=== PATIENT | male | born 1980 | race Caucasian/White ===

== ENCOUNTER 2020-09-06 18:09 | Emergency (ER) | payer SELFPAY ==
[~2020-09-06] VITALS: Ht 132.1 cm; Wt 110.8 kg
[2020-09-06 18:15] VITALS: BP 151/89
[2020-09-06] MEDS ORDERED: DEXAMETHASONE 4 MG/ML VIAL PO ONE (19:25)
[2020-09-06 19:46] LABS: BASOPHILS # (AUTO) 0.1 K/uL (0.00-0.22); BASOPHILS % (AUTO) 0.6 % (0.0-2.0); EOSINOPHILS % (AUTO) 0.4 % (0.0-4.0); HEMATOCRIT 47.2 % (36-52); LYMPHOCYTES # (AUTO) 1.8 K/uL (2.0-11.5); LYMPHOCYTES % (AUTO) 17.4 % (20.5-51.1); MEAN CORPUSCULAR HEMOGLOBIN 31 pg (27-31); MEAN CORPUSCULAR HGB CONC 34 g/dL (33-37); MEAN CORPUSCULAR VOLUME 90.2 fL (80-94); MONOCYTES # (AUTO) 0.3 K/uL (0.8-1.0); MONOCYTES % (AUTO) 3.2 % (1.7-9.3); NEUTROPHILS # (AUTO) 7.9 K/uL (1.8-7.7); NEUTROPHILS % (AUTO) 78.4 % (42.2-75.2); PLATELET COUNT (AUTO) 192 K/uL (140-450); RED BLOOD CELL COUNT(AUTO) 5.23 MIL/uL (4.20-6.10); RED CELL DISTRIBUTION WIDTH 13.5 % (11.6-13.7); WHITE BLOOD COUNT (AUTO) 10.1 K/uL (4.8-10.8)
[2020-09-06 20:03] LABS: ALBUMIN 4.4 g/dL (3.4-5.0); ANION GAP 13.6 (8-16); CARBON DIOXIDE 26.6 mmol/L (21-32); POTASSIUM 4.2 mmol/L (3.5-5.1); TOTAL BILIRUBIN 1.1 mg/dL (0.0-1.0)
[2020-09-06 21:50] VITALS: BP 138/88
== END 2020-09-06 22:15 | disposition home or self-care (01) ==
LOC: MED 18:09
DX: J39.2 Other diseases of pharynx (principal)
CPT/HCPCS: 36415; 70491; 80053; 85025; 99285; J1100

== ENCOUNTER 2021-08-19 10:40 | Emergency (ER) | payer SELFPAY ==
[~2021-08-19] VITALS: Ht 185.4 cm; Wt 113.4 kg
[2021-08-19 10:52] VITALS: BP 144/97
[2021-08-19] MEDS ORDERED: OMEP-303 PO (11:51)
[2021-08-19] MEDS ORDERED: BEN10 PO (11:51)
--- NOTE | 2021-08-19 12:09 | NUR ---
Patient discharged with v/s stable. Written and verbal after care instructions given and explained. Patient alert, oriented and verbalized understanding of instructions. Carried with steady gait. All questions addressed prior to discharge. ID band removed. Patient advised to follow up with PMD. Rx of OMEPRAZOLE AND BENTYL given. Patient educated on indication of medication including possible reaction and side effects. Opportunity to ask questions provided and answered.
--- NOTE | 2021-08-19 12:10 | NUR ---
PT SEEN BY REJI DELACRUZ, NO NURSING INTERVENTIONS PROVIDED
== END 2021-08-19 12:09 | disposition home or self-care (01) ==
LOC: MED 10:40
DX: J02.9 Acute pharyngitis, unspecified (principal); R03.0 Elevated blood-pressure reading, without diagnosis of hypertension; Z79.899 Other long term (current) drug therapy
CPT/HCPCS: 99283

== ENCOUNTER 2021-10-31 12:32 | Emergency (ER) | payer SELFPAY ==
[~2021-10-31] VITALS: Ht 195.6 cm; Wt 99.8 kg
[~2021-10-31 12:32] MED LIST: BEN10 PO; OMEP-303 PO
[2021-10-31 12:35] VITALS: BP 158/114
[2021-10-31] MEDS ORDERED: LIDOCAINE MPF 1% 10 MG/ML VIAL INJ ONE (12:45)
[2021-10-31] MEDS ORDERED: AMOX-999 PO (13:50)
== END 2021-10-31 14:04 | disposition home or self-care (01) ==
LOC: MED 12:32
DX: S81.851A Open bite, right lower leg, initial encounter (principal); Z79.899 Other long term (current) drug therapy; W54.0XXA Bitten by dog, initial encounter; Y93.89 Activity, other specified; Y92.89 Other specified places as the place of occurrence of the external cause; Y99.8 Other external cause status
CPT/HCPCS: 90471; 90715; 99283; J2001

== ENCOUNTER 2021-11-02 16:48 | Emergency (ER) | payer SELFPAY ==
[~2021-11-02] VITALS: Ht 195.6 cm; Wt 99.8 kg
[~2021-11-02 16:48] MED LIST changes: +AMOX-999 PO
[2021-11-02 16:58] VITALS: BP 152/95
--- NOTE | 2021-11-02 17:10 | NUR ---
BIB SELF FOR WOUND CHECK S/P DOG BITE AT RIGHT KNEE X 2 DAYS AGO.
--- NOTE | 2021-11-02 17:18 | NUR ---
Patient being evaluated by REJI COYNE at TRIAGE ROOM.
[2021-11-02] MEDS ORDERED: SULF-58 PO (17:23)
[2021-11-02] MEDS ORDERED: BACTO TP (17:23)
[2021-11-02] MEDS ORDERED: BACITRACIN OINT 500 UNITS/GM PKT TP ONE ×2 (17:32→17:35)
[2021-11-02 17:58] VITALS: BP 152/95
--- NOTE | 2021-11-02 17:58 | NUR ---
Patient discharged with v/s stable. Written and verbal after care instructions given and explained. Patient alert, oriented and verbalized understanding of instructions. Ambulatory with steady gait. All questions addressed prior to discharge. ID band removed. Patient advised to follow up with PMD. Rx of bactrobam, bactrim (sent) given. Patient educated on indication of medication including possible reaction and side effects. Opportunity to ask questions provided and answered.
== END 2021-11-02 17:58 | disposition home or self-care (01) ==
LOC: MED 16:48
DX: S81.851D Open bite, right lower leg, subsequent encounter (principal); L08.9 Local infection of the skin and subcutaneous tissue, unspecified; Z79.899 Other long term (current) drug therapy; W54.0XXD Bitten by dog, subsequent encounter
CPT/HCPCS: 99282

== ENCOUNTER 2021-11-04 17:17 | Emergency (ER) | payer SELFPAY ==
[~2021-11-04] VITALS: Ht 195.6 cm; Wt 99.8 kg
[~2021-11-04 17:17] MED LIST changes: +BACTO TP; +SULF-58 PO
[2021-11-04 17:32] VITALS: BP 165/98
--- NOTE | 2021-11-04 17:35 | NUR ---
PT AMB TO BED 5.
--- NOTE | 2021-11-04 18:20 | NUR ---
41/M PRESENTS TO ED FOR WOUND CHECK TO RIGHT KNEE. PATIENT REPORTS GETTING SUTURES PLACED 4 DAYS AGO, DENIES WORSENING PAIN, NO DISCHARGE OR TENDERNESS NOTED TO SITE, PATIENT DENIES RECENT FEVERS OR CHILLS, PATIENT AMBULATORY UPON ARRIVAL TO ED.
--- NOTE | 2021-11-04 18:45 | NUR ---
Patient discharged with v/s stable. Written and verbal after care instructions ABOUT ANIMAL BITE given and explained. Patient verbalized understanding. Ambulatory with steady gait. All questions addressed prior to discharge. Advised to follow up with PMD.
== END 2021-11-04 18:45 | disposition home or self-care (01) ==
LOC: MED 17:17
DX: S81.011D Laceration without foreign body, right knee, subsequent encounter (principal); Z79.899 Other long term (current) drug therapy; W54.0XXD Bitten by dog, subsequent encounter
CPT/HCPCS: 99281

== ENCOUNTER 2021-11-13 09:38 | Emergency (ER) | payer SELFPAY ==
[~2021-11-13] VITALS: Ht 167.6 cm; Wt 113.4 kg
[2021-11-13 09:50] VITALS: BP 145/97
--- NOTE | 2021-11-13 10:39 | NUR ---
41/M PRESENTS TO ED FOR SUTURE REMOVAL, STATES SUTURES PLACED ON LEFT LEG. DENIES PAIN, FEVER OR SIGNS OF INFECTIONS, NO OTHER MEDICAL COMPLAINTS AT THIS TIME.
--- NOTE | 2021-11-13 10:43 | NUR ---
Patient discharged with v/s stable. Written and verbal after care instructions ABOUT SUTURE REMOVAL given and explained. Patient verbalized understanding. Ambulatory with steady gait. All questions addressed prior to discharge. Advised to follow up with PMD.
== END 2021-11-13 10:43 | disposition home or self-care (01) ==
LOC: MED 09:38
DX: S71.151D Open bite, right thigh, subsequent encounter (principal); Z48.02 Encounter for removal of sutures; Z79.899 Other long term (current) drug therapy; Z79.2 Long term (current) use of antibiotics; W54.0XXD Bitten by dog, subsequent encounter
CPT/HCPCS: 99281

== ENCOUNTER 2022-04-30 10:11 | Emergency (ER) | payer SELFPAY ==
[~2022-04-30] VITALS: Ht 198.1 cm; Wt 111.1 kg
[2022-04-30 10:21] VITALS: BP 134/88
--- NOTE | 2022-04-30 10:26 | NUR ---
PT AMB TO BED 4
--- NOTE | 2022-04-30 10:28 | NUR ---
EKG BEING DONE
--- NOTE | 2022-04-30 10:30 | NUR ---
PATIENT PRESENTS TO ED WITH CHEST PAIN . PT STATES CHEST PAIN STARTED 3-4DAYS AGO AND ITS CURRENTLY BURNING, RADAITES TO HIS BACK AND EARS. DENIES N/V/D; SKIN IS PINK/WARM/DRY; AAOX4 WITH EVEN AND STEADY GAIT; LUNGS CLEAR BL; HR EVEN AND REGULAR; PT DENIES ANY FEVER, CP, SOB, OR COUGH AT THIS TIME; PATIENT STATES PAIN OF 8/10 AT THIS TIME; VSS; PATIENT POSITIONED FOR COMFORT; HOB ELEVATED; BEDRAILS UP X2; BED DOWN. ER MD MADE AWARE OF PT STATUS. PMH: NONE NKA
[2022-04-30 11:01] LABS: BASOPHILS % (AUTO) 0.6 % (0.0-2.0); EOSINOPHILS # (AUTO) 0.1 K/uL (0-0.4); EOSINOPHILS % (AUTO) 1.8 % (0.0-4.0); HEMATOCRIT 46.1 % (36-52); HEMOGLOBIN 15.4 g/dL (12.0-18.0); LYMPHOCYTES % (AUTO) 36.1 % (20.5-51.1); MEAN CORPUSCULAR HEMOGLOBIN 30 pg (27-31); MEAN CORPUSCULAR HGB CONC 33 g/dL (33-37); MEAN CORPUSCULAR VOLUME 89.5 fL (80-94); MONOCYTES # (AUTO) 0.3 K/uL (0.8-1.0); MONOCYTES % (AUTO) 4.9 % (1.7-9.3); NEUTROPHILS # (AUTO) 3.1 K/uL (1.8-7.7); NEUTROPHILS % (AUTO) 56.6 % (42.2-75.2); PLATELET COUNT (AUTO) 200 K/uL (140-450); RED BLOOD CELL COUNT(AUTO) 5.15 MIL/uL (4.20-6.10); RED CELL DISTRIBUTION WIDTH 13.1 % (11.6-13.7); WHITE BLOOD COUNT (AUTO) 5.4 K/uL (4.8-10.8)
[2022-04-30 11:11] LABS: ANION GAP 10.1 (8-16); CARBON DIOXIDE 29.2 mmol/L (21-32); POTASSIUM 4.3 mmol/L (3.5-5.1)
[2022-04-30] MEDS ORDERED: NAPR-54 PO (11:51)
[2022-04-30 12:15] VITALS: BP 140/90
--- NOTE | 2022-04-30 12:15 | NUR ---
Patient discharged with v/s stable. Written and verbal after care instructions given and explained. Patient alert, oriented and verbalized understanding of instructions. Ambulatory with steady gait. All questions addressed prior to discharge. ID band removed. Patient advised to follow up with PMD. Rx of NAPROXEN 500 MG TABLET given. Patient educated on indication of medication including possible reaction and side effects. Opportunity to ask questions provided and answered.
== END 2022-04-30 12:15 | disposition home or self-care (01) ==
LOC: MED 10:11
DX: R07.9 Chest pain, unspecified (principal); I10 Essential (primary) hypertension; Z79.2 Long term (current) use of antibiotics; Z79.899 Other long term (current) drug therapy
CPT/HCPCS: 36415; 71045; 80048; 84484; 85025; 93005; 99285

== ENCOUNTER 2023-08-19 11:32 | Emergency (ER) | payer SELFPAY ==
[~2023-08-19] VITALS: Ht 175.3 cm; Wt 108.9 kg
[~2023-08-19 11:32] MED LIST changes: +NAPR-337 PO
[2023-08-19 11:51] VITALS: BP 149/92; PULSE 72; RESP 18; TEMP 97.6; O2SAT 99
[2023-08-19 12:12] VITALS: BP 144/81; PULSE 75; RESP 18; TEMP 97.6
[2023-08-19 12:13] VITALS: O2SAT 99
[2023-08-19] MEDS: KETOROLAC 60 MG/2 ML VIAL IM ONE (12:39)
[2023-08-19] MEDS ORDERED: NAPR-1704 PO (13:24)
[2023-08-19] MEDS ORDERED: BROM118S70 PO (13:24)
== END 2023-08-19 12:09 | disposition home or self-care (01) ==
LOC: MED 11:32
DX: J06.9 Acute upper respiratory infection, unspecified (principal); I10 Essential (primary) hypertension; Z79.899 Other long term (current) drug therapy
CPT/HCPCS: 71045; 93005; 96372; 99283; J1885